=== PATIENT | male | born 1990 | race Caucasian/White ===

== ENCOUNTER 2016-11-05 13:02 | Outpatient (CLI) | payer OTHER | END 2016-11-05 13:03 | disposition home or self-care (01) | DX: G47.00 Insomnia, unspecified (principal); G47.10 Hypersomnia, unspecified ==

== ENCOUNTER 2016-12-03 19:09 | Outpatient (CLI) | payer OTHER | END 2016-12-03 19:10 | disposition home or self-care (01) | DX: Z53.9 Procedure and treatment not carried out, unspecified reason (principal) ==

== ENCOUNTER 2016-12-04 06:34 | Outpatient (CLI) | payer OTHER | END 2016-12-04 06:35 | disposition home or self-care (01) | DX: Z53.9 Procedure and treatment not carried out, unspecified reason (principal) ==

== ENCOUNTER 2016-12-04 14:46 | Outpatient (CLI) | payer OTHER | END 2016-12-04 14:47 | disposition home or self-care (01) | DX: G47.10 Hypersomnia, unspecified (principal) ==

== ENCOUNTER 2016-12-26 22:51 | Emergency (ER) | payer OTHER ==
[2016-12-27] MEDS ORDERED: IPRATROPIUM/ALBUTEROL 3 ML NEB INH STA (00:21)
[2016-12-27] MEDS ORDERED: DEXAMETHASONE 10 MG/ML VIAL ONE (00:21)
[2016-12-27] MEDS ORDERED: DEXAMETHASONE 10 MG/ML VIAL PO STA (00:21)
[2016-12-27] MEDS ORDERED: IPRATROPIUM/ALBUTEROL 3 ML NEB INH ONE (00:29)
== END 2016-12-27 01:53 | disposition home or self-care (01) ==
DX: Z77.098 Contact with and (suspected) exposure to other hazardous, chiefly nonmedicinal, chemicals (principal); X08.8XXA Exposure to other specified smoke, fire and flames, initial encounter; Z87.891 Personal history of nicotine dependence
CPT/HCPCS: 36415; 82375; 94640; 99283; 99284; J7620

== ENCOUNTER 2017-01-14 19:21 | Outpatient (CLI) | payer OTHER | END 2017-01-14 19:22 | disposition home or self-care (01) | DX: G47.10 Hypersomnia, unspecified (principal); G47.61 Periodic limb movement disorder ==

== ENCOUNTER 2017-01-15 06:15 | Outpatient (CLI) | payer OTHER | END 2017-01-15 06:16 | disposition home or self-care (01) | DX: G47.10 Hypersomnia, unspecified (principal) ==

== ENCOUNTER 2017-01-15 06:43 | Outpatient (CLI) | payer OTHER | END 2017-01-15 06:44 | disposition home or self-care (01) | DX: G47.10 Hypersomnia, unspecified (principal) ==

== ENCOUNTER 2017-02-17 13:13 | Outpatient (CLI) | payer OTHER | END 2017-02-17 13:14 | disposition home or self-care (01) | DX: G47.61 Periodic limb movement disorder (principal); G47.10 Hypersomnia, unspecified ==